=== PATIENT | female | born 1975 | race Two or more races ===

== ENCOUNTER 2019-06-12 10:00 | Inpatient (IN) | payer OTHER ==
[~2019-06-12] VITALS: Ht 162.6 cm; Wt 81.6 kg
[2019-06-12] MEDS ORDERED: CLONAZEPAM1 MG PO (14:05)
[2019-06-12] MEDS ORDERED: LEVAPRO PO (14:06)
[2019-06-12] MEDS ORDERED: SYNTHROID75 MCG PO (14:07)
[2019-06-12] MEDS ORDERED: PROTONIX PO (14:07)
[2019-06-16] MEDS ORDERED: LEXAPRO20 MG PO (09:11)
[2019-06-16] MEDS ORDERED: PROTONIX20 MG PO (09:12)
== END 2019-06-17 11:10 | disposition home or self-care (01) | DRG 581 ==
LOC: EDSTATUS 10:00 → SURH 10:00 → ADM 10:00 → CIR.AMB 10:00 → O/R 06-16 04:55 → SURG 06-16 04:55 → SURH 06-16 07:00 → SURG 06-16 16:02
PROVIDERS: ADMIT Plastic Surgery
PROC: 4A19X1Z Monitoring of Respiratory Capacity, External Approach (ICD-10-PCS; 2019-06-16)
PROC: 0W0F0ZZ Alteration of Abdominal Wall, Open Approach (ICD-10-PCS; principal; 2019-06-16 07:00)
PROC: 0H0V0ZZ Alteration of Bilateral Breast, Open Approach (ICD-10-PCS; 2019-06-16 07:00)
DX: N62 Hypertrophy of breast (principal); E88.1 Lipodystrophy, not elsewhere classified; E03.9 Hypothyroidism, unspecified; F41.9 Anxiety disorder, unspecified